=== PATIENT | female | born 1975 | race Caucasian/White ===

== ENCOUNTER 2018-12-30 13:44 | Day surgery (SDC) | payer OTHER ==
[2018-12-27 10:40] VITALS: BMI 29.9
[2018-12-30] MEDS ORDERED: MIDAZOLAM HCL 2 MG/2 ML SINGLE DOSE VIAL ONE ×2 (15:15)
--- NOTE | 2018-12-30 15:41 | OP ---
Operative Note - Note: Operative Date: 12/30/18 Pre-Operative Diagnosis: Right renal stone Operation: Right ESWL Findings: 5 mm mid pole Right renal stone3 Post-Operative Diagnosis: Same as Pre-op Surgeon: Riley Flores Anesthesia: Fractional Estimated Blood Loss (mls): 0 Operative Report Dictated: Yes
--- NOTE | 2018-12-30 15:53 | OP ---
Operative Note - Note: Operative Date: 12/30/18 Pre-Operative Diagnosis: Right renal stone Operation: Right ESW
[2018-12-30 16:52] VITALS: TEMP 98
[2018-12-30 17:37] VITALS: BP 126/92; PULSE 70
--- NOTE | 2018-12-30 19:45 | OP ---
DATE OF OPERATION: 12/30/2018 PREOPERATIVE DIAGNOSIS: Right renal stone. POSTOPERATIVE DIAGNOSIS: Right renal stone. PROCEDURE: Right extracorporeal shockwave lithotripsy. ATTENDING: Briana Flores M.D. ANESTHESIA: Fractional. DESCRIPTION OF PROCEDURE: Patient was brought in the operating room, placed in a supine position on the operating room table. Ultrasonography and fluoroscopy were performed. A 5-mm right mid pole stone was identified. Once the stone was identified, anesthesia and preoperative antibiotics were administered. Extracorporeal shockwave lithotripsy was then performed. Excellent fragmentation of the stone was noted under real time ultrasonography and fluoroscopy. No complications were noted. DISPOSITION: To recovery room. BRIANA JONES M.D. [id number]
== END 2018-12-30 17:40 | disposition home or self-care (01) ==
LOC: JASU-SURG 13:44
PROVIDERS: ATTEND Urology
PROC: 0TF3XZZ Fragmentation in Right Kidney Pelvis, External Approach (ICD-10-PCS; principal; 2018-12-30 14:45)
DX: N20.0 Calculus of kidney (principal)
CPT/HCPCS: 84703

== ENCOUNTER 2019-06-23 18:48 | Emergency (ER) | payer OTHER ==
[2019-06-23 19:19] VITALS: BMI 28.1
--- NOTE | 2019-06-23 19:23 | PDOC ---
Rapid Medical Evaluation Chief Complaint: Headache Time Seen by Provider: 06/23/19 19:16 Medical Evaluation: Allergies Allergy/AdvReac Type Severity Reaction Status Date / Time Sulfa (Sulfonamide Allergy Mild Itching Verified 06/23/19 19:16 Antibiotics) [Sulfa(Sulfonamide Antibiotics)] 06/23/19 19:17 This patient had brief in-person evaluation in triage cc:dizziness HPI: Patient reports dizziness today states dizziness worse when changed from one position to the next. States dizziness causes her to vomit PE: NAD clear lungs bilaterally neuro: EOMI, PERRLA, Oders: antiemetic This patient will proceed to emergency department for further evaluation. Discharge Disposition - Diagnosis Dizziness - Referrals - Patient Instructions - Post Discharge Activity
--- NOTE | 2019-06-23 21:53 | PDOC ---
History of Present Illness - General Chief Complaint: Lightheaded Stated Complaint: HEADACHE/RT. SHOULDER PAIN Time Seen by Provider: 06/23/19 19:16 History Source: Patient - History of Present Illness Initial Comments: 06/23/19 21:56 44 year old reports that last night she woke up pain to right flank pain radiating to right groin. since last night patient reports having a headache and dizziness. [email or web address] this morning DEnies abdominal pain, Past History - Past Medical History Allergies/Adverse Reactions: Allergies Allergy/AdvReac Type Severity Reaction Status Date / Time Sulfa (Sulfonamide Allergy Mild Itching Verified 06/23/19 19:16 Antibiotics) [Sulfa(Sulfonamide Antibiotics)] Home Medications: Ambulatory Orders Mirabegron [Myrbetriq] 50 mg PO DAILY 12/30/18 Anemia: No Asthma: No Cancer: No Cardiac Disorders: No CVA: No COPD: No CHF: No Dementia: No Diabetes: No GI Disorders: No Disorders: No HTN: No Hypercholesterolemia: No Liver Disease: No Seizures: No Thyroid Disease: No - Surgical History Abdominal Surgery: No Appendectomy: No Cardiac Surgery: No Cholecystectomy: No Lung Surgery: No Neurologic Surgery: No Orthopedic Surgery: No - Psycho Social/Smoking Cessation Hx Smoking Status: No Smoking History: Never smoked Have you smoked in the past 12 months: No Number of Cigarettes Smoked Daily: 0 Hx Alcohol Use: Yes Drug/Substance Use Hx: No Substance Use Type: Alcohol Hx Substance Use Treatment: No *Physical Exam - Vital Signs Last Vital Signs Temp Pulse Resp BP Pulse Ox 97.8 F 74 16 134/80 100 06/23/19 19:17 06/23/19 19:17 06/23/19 19:17 06/23/19 19:17 06/23/19 19:17 - Physical Exam General Appearance: Yes: Appropriately Dressed HEENT: positive: Other (+ pierre vera pike) Respiratory/Chest: positive: Lungs Clear, Normal Breath Sounds Cardiovascular: positive: Regular Rhythm, Regular Rate Gastrointestinal/Abdominal: positive: Normal Bowel Sounds, Tender (RUQ), Soft Musculoskeletal: positive: Normal Inspection. negative: CVA Tenderness (R) Integumentary: positive: Normal Color, Dry, Warm Neurologic: positive: Fully Oriented, Alert, Normal Mood/Affect ED Treatment Course - LABORATORY CBC & Chemistry Diagram: 06/23/19 22:10 06/23/19 22:10 Medical Decision Making - Medical Decision Making A: Abdominal pain; headache P: US CT head LAbs UA IVF zofran 06/24/19 01:52 patient eloped with an IV in place. [employer] leaderBELLA Howell and BELLA Donald is aware. [facility] contacted by RN. 0 Discharge - Discharge Information Problems reviewed: Yes Clinical Impression/Diagnosis: Dizziness Abdominal pain Qualifiers: Abdominal location: right upper quadrant Qualified Code(s): R10.11 - Right upper quadrant pain Headache Qualifiers: Headache type: unspecified Headache chronicity pattern: unspecified pattern Intractability: not intractable Qualified Code(s): R51 - Headache Disposition: ELOPED - Follow up/Referral Referrals: Papa Jacobs MD [Primary Care Provider] - - Patient Discharge Instructions - Post Discharge Activity
[2019-06-23] MEDS ORDERED: SODIUM CHLORIDE 1,000 ML IV STA (22:01)
[2019-06-23] MEDS ORDERED: ONDANSETRON 4 MG/2 ML VIAL IVPB ONE (22:01)
[2019-06-23] MEDS ORDERED: ONDANSETRON 4 MG/2 ML VIAL ONE (23:32)
[2019-06-23 23:43] LABS: BASO % 0.7 % (0-2.0); EOS % 3.8 % (0-4.5); HEMATOCRIT 36.7 % (32.4-45.2); HEMOGLOBIN 12.3 GM/dL (10.7-15.3); LYMPH % 34.6 % (8-40); MCH 29.6 pg (25.7-33.7); MCHC 33.4 g/dl (32.0-36.0); MEAN CELL VOLUME 88.7 fl (80-96); MEAN PLT VOLUME 8.3 fl (7.5-11.1); MONO % 4.5 % (3.8-10.2); NEUT % 56.4 % (42.8-82.8); PLATELET COUNT 315 K/MM3 (134-434); RBC 4.14 M/mm3 (3.60-5.2); RDW 13.1 % (11.6-15.6); WHITE BLOOD COUNT 8.5 K/mm3 (4.0-10.0)
[2019-06-23 23:44] LABS: PH,URINE 6.5 (5.0-8.0); URINE APPEARANCE CLEAR; URINE BILIRUBIN NEGATIVE (NEGATIVE); URINE COLOR YELLOW; URINE GLUCOSE (UA) NEGATIVE (NEGATIVE); URINE KETONE NEGATIVE (NEGATIVE); URINE LEUK ESTERASE NEGATIVE (NEGATIVE); URINE NITRITE NEGATIVE (NEGATIVE); URINE PROTEIN NEGATIVE (NEGATIVE)
[2019-06-23 23:49] VITALS: BP 116/76; PULSE 65; TEMP 97.4
[2019-06-24 00:25] LABS: ALBUMIN 3.5 g/dl (3.4-5.0); BILIRUBIN,TOTAL 0.3 mg/dL (0.2-1); BLOOD UREA NITROGEN 15.3 mg/dL (7-18); CALCIUM 8.7 mg/dL (8.5-10.1); CREATININE 0.7 mg/dL (0.55-1.3); POTASSIUM 4.8 mmol/L (3.5-5.1); TOT PROT 7.4 g/dl (6.4-8.2)
[2019-06-24] MEDS ORDERED: KETOROLAC TROMETHAMINE 30 MG/1 ML VIAL IVPUSH ONE (00:30)
[2019-06-24] MEDS ORDERED: KETOROLAC TROMETHAMINE 30 MG/1 ML VIAL ONE (01:33)
== END 2019-06-24 03:17 | disposition left against medical advice (07) ==
LOC: JER 18:48
PROC: 3E033GC Introduction of Other Therapeutic Substance into Peripheral Vein, Percutaneous Approach (ICD-10-PCS; principal; 2019-06-23)
DX: R51 Headache (principal); R42 Dizziness and giddiness; R10.11 Right upper quadrant pain; R10.31 Right lower quadrant pain
CPT/HCPCS: 36415; 70450-TC; 76700-TC; 80053; 81003; 83690; 84703; 85025; 96361; 96374; 99284-25; J7030

== ENCOUNTER 2020-01-30 15:33 | Emergency (ER) | payer OTHER ==
--- NOTE | 2020-01-30 16:07 | TELE ---
HPI Do you have fever,cough or shortness of breath?: No - General History Source: Patient Exam Limitations: No Limitations - History of Present Illness 01/30/20 16:02 Patient is a 44-year-old female with no past medical history who presents to a virtual urgent care visit for a COVID test. The patient states she was around her daughter's father who was positive for COVID 2 weeks ago. She is concerned that she has COVID. She states that today she woke up and began having throat pain. She denies any fevers or chills. She denies any body aches. She states she traveled to [place], to the [place], last week but otherwise has not traveled within the [place] or outside the [place]. She denies any loss of taste. Please note: This virtual visit was done via audio only as the patient was having technical difficulties accessing the video portion of the visit. Past History - Medical History Allergies/Adverse Reactions: Allergies Allergy/AdvReac Type Severity Reaction Status Date / Time Sulfa (Sulfonamide Allergy Mild Itching Verified 10/24/19 21:47 Antibiotics) [Sulfa(Sulfonamide Antibiotics)] Home Medications: Ambulatory Orders Mirabegron [Myrbetriq] 50 mg PO DAILY 12/30/18 predniSONE [Deltasone -] 60 mg PO DAILY 21 Days #42 tablet 10/24/19 Anemia: No Asthma: No Cancer: No Cardiac Disorders: No CVA: No COPD: No CHF: No Dementia: No Diabetes: No GI Disorders: No Disorders: No HTN: No Hypercholesterolemia: No Liver Disease: No Seizures: No Thyroid Disease: No - Surgical History Abdominal Surgery: No Appendectomy: No Cardiac Surgery: No Cholecystectomy: No Lung Surgery: No Neurologic Surgery: No Orthopedic Surgery: No - Psycho-Social/Smoking History Smoking Status: No Smoking History: Never smoked Have you smoked in the past 12 months: No Number of Cigarettes Smoked Daily: 0 Review of Systems - Review of Systems Comments:: 01/30/20 16:03 - Review of Systems Able to Perform ROS?: Yes Constitutional: No: Fever, Chills, Loss of Appetite, Night Sweats, Weakness; positive: COVID test HEENTM: No: Eye Pain, Vision changes, Ear Pain, Throat Swelling, Mouth Pain, Difficulty Swallowing; positive: Throat pain Respiratory: No: Cough, Shortness of Breath, Wheezing, Sputum Production Cardiac (ROS): No: Chest Pain, Chest Tightness, Palpitations, Irregular Heart Beat, Edema ABD/GI: No: Nausea, Vomiting, Abdominal Pain, Diarrhea : No Dysuria, No Hematuria, No Frequency, No Urgency Musculoskeletal: No: Muscle Pain, Back Pain, Joint Pain, Muscle Weakness, Neck Pain Integumentary: No: Lesions, Rash Neurological: No: Headache, Numbness, Tingling, Weakness, Speech Difficulties *Physical Exam - Physical Exam 01/30/20 16:04 - Physical Exam HEENT: Normal Voice, Hearing Grossly Normal Respiratory/Chest: Speaking in full and complete sentences Neurologic: Fully Oriented, Alert, Normal Mood/Affect, Normal Response - Medical Decision Making 01/30/20 16:05 Assessment: Patient is a 44-year-old female requesting COVID testing after having a recent COVID positive contact and waking up today with throat pain. Plan: -COVID swab ordered -COVID counseling given, isolation precautions reviewed -Patient [facility] proceed [facility] testing -She understands and agrees with this treatment and plan Discharge Diagnosis at time of Disposition: Counseled about COVID-19 virus infection, Throat pain - Referrals Follow-up Referral(s): Brendan Jacobs MD [Primary Care Provider] - - Patient Instructions Discharge Instructions: [facility]-Coronavirus Instructions, [facility] COVID-19 Isolation Protocol Additional Discharge Instructions: You were seen via a telehealth visit and tested for COVID today. You should follow isolation precautions as per [facility] guidelines. Thank you for participating in our telehealth medicine program. If you have any worsening symptoms such as high fever, shaking chills, profuse vomiting or any other worsening symptoms you should go to your local emergency department immediately or follow up with your primary care doctor immediately. If you become symptomatic: Take Tylenol 650 mg every 6 hours as needed for fever or pain. You may take Robitussin or other [id number] cough syrup. Follow the dosing instructions on the bottle. Warm tea, honey, and salt water gargles may help your symptoms. Please take precautions and self quarantine for 2 weeks and follow-up with your primary care doctor and the Department of Health. Return to the nearest emergency department for shortness of breath, difficulty breathing, chest pain, or if you have any changes in your symptoms. - Discharge Disposition: HOME Condition at time of Disposition: Stable
== END 2020-01-30 16:08 | disposition home or self-care (01) ==
LOC: JVIRT 15:33
DX: Z11.59 Encounter for screening for other viral diseases (principal)
CPT/HCPCS: Q3014-GT; U0003

== ENCOUNTER 2021-05-01 15:53 | Emergency (ER) | payer OTHER ==
[2021-05-01] MEDS ORDERED: ACETAMINOPHEN 500 MG TABLET (FP) PO ONE (17:01)
[2021-05-01] MEDS ORDERED: LIDOCAINE 5% TOPICAL PATCH TP ONE (17:03)
[2021-05-01] MEDS ORDERED: ACETAMINOPHEN 325 MG TABLET (FP) ONE (17:07)
[2021-05-01] MEDS ORDERED: LIDOCAINE 5% TOPICAL PATCH ONE (17:08)
[2021-05-01 19:15] VITALS: BP 129/89; PULSE 77; TEMP 98.7; BMI 30.9
[2021-05-01] MEDS ORDERED: LIDOCAINE PATCH REMOVAL MC SCH (22:00)
== END 2021-05-01 17:32 | disposition home or self-care (01) ==
LOC: JER 15:53
DX: M54.2 Cervicalgia (principal); V89.2XXA Person injured in unspecified motor-vehicle accident, traffic, initial encounter
CPT/HCPCS: 99283-25

== ENCOUNTER 2021-11-18 07:34 | Emergency (ER) | payer OTHER ==
[2021-11-18 08:08] VITALS: BP 124/76; PULSE 79; TEMP 97.8; BMI 30.9
[2021-11-18] MEDS ORDERED: predniSONE 20 MG TABLET (UD) PO ONE (08:23)
[2021-11-18] MEDS ORDERED: predniSONE 20 MG TABLET (UD) ONE (08:45)
== END 2021-11-18 08:45 | disposition home or self-care (01) ==
LOC: JER 07:34 → JERFT 07:34
DX: L23.7 Allergic contact dermatitis due to plants, except food (principal)
CPT/HCPCS: 99282-25

== ENCOUNTER 2022-05-15 18:57 | Emergency (ER) | payer OTHER ==
[2022-05-15 19:14] VITALS: BP 122/89; PULSE 73; RESP 18; TEMP 98.3; BMI 32.5
[2022-05-15] MEDS ORDERED: KETOROLAC TROMETHAMINE 30 MG/1 ML VIAL IM ONE (21:09)
[2022-05-15] MEDS ORDERED: diazePAM 5 MG TABLET PO ONE (21:09)
[2022-05-15 21:54] LABS: EPI CELLS 34 /uL (0-25.1); HCG,QUALITATIVE URINE Negative; HYALINE CASTS 0 /uL (0-3.1); PH,URINE 7.5 (5.0-8.0); URINE APPEARANCE CLEAR; URINE BACTERIA 326 /uL (0-1359); URINE BILIRUBIN NEGATIVE (NEGATIVE); URINE COLOR YELLOW; URINE GLUCOSE (UA) NEGATIVE (NEGATIVE); URINE KETONE NEGATIVE (NEGATIVE); URINE LEUK ESTERASE 1+ (NEGATIVE); URINE NITRITE NEGATIVE (NEGATIVE); URINE PROTEIN NEGATIVE (NEGATIVE); URINE WBC 53 /uL (0-25.8)
[2022-05-15 21:59] LABS: URINE RBC 84.6 /uL (0-23.9)
[2022-05-15] MEDS ORDERED: diazePAM 5 MG TABLET ONE (22:13)
[2022-05-15] MEDS ORDERED: KETOROLAC TROMETHAMINE 30 MG/1 ML VIAL ONE (22:14)
== END 2022-05-15 22:22 | disposition home or self-care (01) ==
LOC: JER 18:57
PROC: 3E0233Z Introduction of Anti-inflammatory into Muscle, Percutaneous Approach (ICD-10-PCS; principal; 2022-05-15)
DX: N30.00 Acute cystitis without hematuria (principal); M62.830 Muscle spasm of back
CPT/HCPCS: 81003; 84703; 87086; 99284-25